=== PATIENT | female | born 2005 | race Caucasian/White ===

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

== ENCOUNTER → 2023-08-11 | Outpatient (CLI) | payer OTHER ==
[2023-08-13 06:12] LABS: HSV-1 DNA Positive (Negative); HSV-2 DNA Negative (Negative)
== END ==
LOC: LAB 10:47 → LAB SHORT 10:47
PROVIDERS: Family Medicine
DX: N76.6 Ulceration of vulva (principal); Z72.51 High risk heterosexual behavior
CPT/HCPCS: 87491; 87529; 87591

== ENCOUNTER → 2023-08-12 | Outpatient (CLI) | payer OTHER ==
[2023-08-14 18:10] LABS: CHLAMYDIA TRACHOMATIS, NAA Negative (Negative)
== END ==
LOC: LAB SHORT 08:40 → LAB 08:40
PROVIDERS: Family Medicine
DX: Z72.51 High risk heterosexual behavior (principal)
CPT/HCPCS: 87491; 87591